=== PATIENT | male | born 1945 | race Caucasian/White ===

== ENCOUNTER 2020-11-23 11:38 | Inpatient (IN) | payer MEDICARE, OTHER ==
[~2020-11-23] VITALS: Ht 177.8 cm; Wt 82.1 kg
[2020-11-23] MEDS ORDERED: LIPITOR80 MG PO (18:08)
[2020-11-23] MEDS ORDERED: NEURONTIN600 MG PO (18:08)
[2020-11-23] MEDS ORDERED: CYMBALTA30 MG PO (18:08)
[2020-11-23] MEDS ORDERED: LEVOTHYROXINE50 MC1 PO (18:09)
[2020-11-23] MEDS ORDERED: JANUVIA 50 MG T50 MG PO (18:09)
[2020-11-23] MEDS ORDERED: TRULICITY1.5 MG/0.5 SQ (18:12)
[2020-11-23 18:55] LABS: HEMOGLOBIN 10.4 gm/dl (14.0-17.5); RED BLOOD COUNT 3.8 M/UL (4.20-5.50); WHITE BLOOD COUNT 21.3 K/UL (4.5-11.0)
[2020-11-24 03:23] LABS: HEMOGLOBIN 8.9 gm/dl (14.0-17.5); RED BLOOD COUNT 3.43 M/UL (4.20-5.50); WHITE BLOOD COUNT 18.6 K/UL (4.5-11.0)
[2020-11-24] MEDS ORDERED: TRESIBA FL100 UNIT/1 SQ (18:12)
[2020-11-25 06:40] LABS: HEMOGLOBIN 9.2 gm/dl (14.0-17.5); RED BLOOD COUNT 3.43 M/UL (4.20-5.50); WHITE BLOOD COUNT 27.4 K/UL (4.5-11.0)
[2020-11-26 08:16] LABS: RED BLOOD COUNT 3.29 M/UL (4.20-5.50); WHITE BLOOD COUNT 22.4 K/UL (4.5-11.0)
[2020-11-27 08:14] LABS: HEMOGLOBIN 8.6 gm/dl (14.0-17.5); RED BLOOD COUNT 3.17 M/UL (4.20-5.50)
[2020-11-27 08:15] LABS: WHITE BLOOD COUNT 28.3 K/UL (4.5-11.0)
[2020-11-29 05:36] LABS: HEMOGLOBIN 9.3 gm/dl (14.0-17.5); RED BLOOD COUNT 3.44 M/UL (4.20-5.50)
[2020-11-29 05:38] LABS: WHITE BLOOD COUNT 15.3 K/UL (4.5-11.0)
[2020-11-30 03:17] LABS: HEMOGLOBIN 9.7 gm/dl (14.0-17.5); RED BLOOD COUNT 3.63 M/UL (4.20-5.50)
--- NOTE | 2020-11-30 17:42 | NUR ---
CHANGED RIGHT FOOT DRESSING. COVERED WITH PRESCRIBED IODINE PASTE, NON ADHESIVES, 4X4'S , SPLINT AND DANELLE.
[2020-12-01 03:18] LABS: HEMOGLOBIN 8.6 gm/dl (14.0-17.5); WHITE BLOOD COUNT 17.9 K/UL (4.5-11.0)
[2020-12-01 03:22] LABS: RED BLOOD COUNT 3.15 M/UL (4.20-5.50)
[2020-12-02 04:42] LABS: HEMOGLOBIN 8.2 gm/dl (14.0-17.5); RED BLOOD COUNT 3.01 M/UL (4.20-5.50); WHITE BLOOD COUNT 13.9 K/UL (4.5-11.0)
[2020-12-03 02:51] LABS: HEMOGLOBIN 8.3 gm/dl (14.0-17.5); RED BLOOD COUNT 3.09 M/UL (4.20-5.50); WHITE BLOOD COUNT 12.9 K/UL (4.5-11.0)
[2020-12-04 03:06] LABS: HEMOGLOBIN 8.7 gm/dl (14.0-17.5); RED BLOOD COUNT 3.24 M/UL (4.20-5.50); WHITE BLOOD COUNT 12.5 K/UL (4.5-11.0)
[2020-12-05 03:50] LABS: HEMOGLOBIN 8.3 gm/dl (14.0-17.5); RED BLOOD COUNT 3.11 M/UL (4.20-5.50); WHITE BLOOD COUNT 14.3 K/UL (4.5-11.0)
[2020-12-06 03:59] LABS: HEMOGLOBIN 9.3 gm/dl (14.0-17.5); WHITE BLOOD COUNT 15.6 K/UL (4.5-11.0)
[2020-12-06 04:12] LABS: RED BLOOD COUNT 3.46 M/UL (4.20-5.50)
[2020-12-07 02:47] LABS: HEMOGLOBIN 8.4 gm/dl (14.0-17.5); RED BLOOD COUNT 3.15 M/UL (4.20-5.50); WHITE BLOOD COUNT 14.8 K/UL (4.5-11.0)
[2020-12-08 04:09] LABS: HEMOGLOBIN 7.9 gm/dl (14.0-17.5); RED BLOOD COUNT 2.97 M/UL (4.20-5.50); WHITE BLOOD COUNT 11.7 K/UL (4.5-11.0)
[2020-12-09 06:29] LABS: HEMOGLOBIN 7.8 gm/dl (14.0-17.5); RED BLOOD COUNT 2.95 M/UL (4.20-5.50); WHITE BLOOD COUNT 10.2 K/UL (4.5-11.0)
[2020-12-10 05:56] LABS: HEMOGLOBIN 8.5 gm/dl (14.0-17.5); RED BLOOD COUNT 3.18 M/UL (4.20-5.50); WHITE BLOOD COUNT 11.6 K/UL (4.5-11.0)
--- NOTE | 2020-12-10 15:10 | NUR ---
RECEIVED CALL FROM OR STAFF-ASHLI THAT PATIENT'S SURGERY WILL BE DONE TOMORROW TO PUT PATIENT NPO AFTER MIDNIGHT.
[2020-12-12 13:48] LABS: HEMOGLOBIN 7.6 gm/dl (14.0-17.5); WHITE BLOOD COUNT 10.8 K/UL (4.5-11.0)
[2020-12-12 13:59] LABS: RED BLOOD COUNT 2.8 M/UL (4.20-5.50)
[2020-12-14 02:58] LABS: HEMOGLOBIN 7.2 gm/dl (14.0-17.5); RED BLOOD COUNT 2.77 M/UL (4.20-5.50)
--- NOTE | 2020-12-14 18:49 | NUR ---
called dr. acevedo with no answer. left message
[2020-12-15 03:26] LABS: HEMOGLOBIN 8.6 gm/dl (14.0-17.5); RED BLOOD COUNT 3.02 M/UL (4.20-5.50); WHITE BLOOD COUNT 7.9 K/UL (4.5-11.0)
--- NOTE | 2020-12-16 04:23 | NUR ---
0415 WENT TO DO DRSG CHANGE AND FOUND THAT [facility] WAS OUT.
[2020-12-16 04:49] LABS: HEMOGLOBIN 9.2 gm/dl (14.0-17.5)
[2020-12-16 04:54] LABS: RED BLOOD COUNT 3.47 M/UL (4.20-5.50); WHITE BLOOD COUNT 10.5 K/UL (4.5-11.0)
[2020-12-17] MEDS ORDERED: HIGH POTENCY I134 MG PO (12:33)
[2020-12-17] MEDS ORDERED: VITAMIN B-1100 M1 PO (12:33)
[2020-12-17] MEDS ORDERED: FOLIC ACID 1 MG1 MG PO (12:33)
[2020-12-17] MEDS ORDERED: ASPIRIN EC81 MG PO (12:33)
[2020-12-17] MEDS ORDERED: DRONABINOL2.5 MG PO (12:33)
[2020-12-17] MEDS ORDERED: GABAPENTIN100 MG PO (12:33)
[2020-12-17] MEDS ORDERED: ACETAMINOPHEN325 MG PO (12:33)
[2020-12-17] MEDS ORDERED: AMLODIPINE BESYL5 MG PO (12:33)
[2020-12-17] MEDS ORDERED: TRESIBA FL100 UNIT/1 SQ (12:33)
[2020-12-18] MEDS ORDERED: LOPRESSOR 25 MG25 MG PO (11:05)
[2020-12-18 11:12] LABS: HEMOGLOBIN 8.8 gm/dl (14.0-17.5); RED BLOOD COUNT 3.29 M/UL (4.20-5.50); WHITE BLOOD COUNT 11.3 K/UL (4.5-11.0)
== END 2020-12-18 16:20 | DRG 853 ==
LOC: MED SURG 4 17:22 → M/S 17:22
PROVIDERS: Internal Medicine; Physician Assistant; Surgery; ADMIT Internal Medicine
PROC: 0QBN0ZZ Excision of Right Metatarsal, Open Approach (ICD-10-PCS; 2020-11-25)
PROC: 0HXMXZZ Transfer Right Foot Skin, External Approach (ICD-10-PCS; 2020-11-25)
PROC: 0JBQ0ZZ Excision of Right Foot Subcutaneous Tissue and Fascia, Open Approach (ICD-10-PCS; 2020-11-25)
PROC: 3E10X8Z Irrigation of Skin and Mucous Membranes using Irrigating Substance (ICD-10-PCS; 2020-12-04)
PROC: 047P3ZZ Dilation of Right Anterior Tibial Artery, Percutaneous Approach (ICD-10-PCS; 2020-12-08)
PROC: 047R3ZZ Dilation of Right Posterior Tibial Artery, Percutaneous Approach (ICD-10-PCS; 2020-12-08)
PROC: 0Y6R0Z0 Detachment at Right 2nd Toe, Complete, Open Approach (ICD-10-PCS; principal; 2020-12-12)
DX: A41.9 Sepsis, unspecified organism (principal); G93.41 Metabolic encephalopathy; E43 Unspecified severe protein-calorie malnutrition; M86.8X7 Other osteomyelitis, ankle and foot; I70.261 Atherosclerosis of native arteries of extremities with gangrene, right leg; L97.419 Non-pressure chronic ulcer of right heel and midfoot with unspecified severity; E87.1 Hypo-osmolality and hyponatremia; L03.115 Cellulitis of right lower limb; N17.9 Acute kidney failure, unspecified; E87.2 Acidosis; I47.2 Ventricular tachycardia; E11.621 Type 2 diabetes mellitus with foot ulcer; I10 Essential (primary) hypertension; N18.30 Chronic kidney disease, stage 3 unspecified; I12.9 Hypertensive chronic kidney disease with stage 1 through stage 4 chronic kidney disease, or unspecified chronic kidney disease; I25.10 Atherosclerotic heart disease of native coronary artery without angina pectoris; E03.9 Hypothyroidism, unspecified; E78.5 Hyperlipidemia, unspecified; D53.9 Nutritional anemia, unspecified; E87.8 Other disorders of electrolyte and fluid balance, not elsewhere classified; D50.9 Iron deficiency anemia, unspecified; Z20.822 Contact with and (suspected) exposure to COVID-19; Z95.1 Presence of aortocoronary bypass graft; Z79.4 Long term (current) use of insulin; Z68.25 Body mass index [BMI] 25.0-25.9, adult
CPT/HCPCS: 36415; 36430; 36600; 70450; 70551; 71045; 71046; 73721; 75630; 80048; 80053; 80202; 82140; 82803; 82962; 83540; 83550; 83605; 83735; 85007; 85025; 85027; 85045; 85652; 86140; 86850; 86900; 86901; 86920; 87040; 87070; 87077; 87186; 87205; 87635; 92507; 92526; 92610; 93005; 93926; 94760; 97110-GP-CQ; 97162; 97167; 97530-GP-CQ; C1725; C1769; C1887; J0360; J0692; J0885; J1100; J1335; J1644; J1650; J1756; J2001; J2270; J2405; J2704; J2710; J2720; J2795; J3010; J3370; J3486; J7030; J7040; J7050; J7070; J7120; P9016; Q4133; Q5106; Q9962; U0002

== ENCOUNTER 2020-12-29 14:23 | Inpatient (IN) | payer MEDICARE, OTHER ==
[~2020-12-29] VITALS: Ht 177.8 cm; Wt 70.3 kg
[~2020-12-29 14:23] MED LIST: ACETAMINOPHEN325 MG PO; AMLODIPINE BESYL5 MG PO; ASPIRIN EC81 MG PO; CYMBALTA30 MG PO; DRONABINOL2.5 MG PO; FOLIC ACID 1 MG1 MG PO; GABAPENTIN100 MG PO; HIGH POTENCY I134 MG PO; JANUVIA 50 MG T50 MG PO; LEVOTHYROXINE50 MC1 PO; LIPITOR80 MG PO; LOPRESSOR 25 MG25 MG PO; NEURONTIN600 MG PO; TRESIBA FL100 UNIT/1 SQ; TRULICITY1.5 MG/0.5 SQ; VITAMIN B-1100 M1 PO
[2020-12-29 18:44] LABS: RED BLOOD COUNT 3.35 M/UL (4.20-5.50); WHITE BLOOD COUNT 9.8 K/UL (4.5-11.0)
[2020-12-30 06:27] LABS: HEMOGLOBIN 8.4 gm/dl (14.0-17.5); RED BLOOD COUNT 3.1 M/UL (4.20-5.50); WHITE BLOOD COUNT 11.4 K/UL (4.5-11.0)
[2020-12-31 06:33] LABS: HEMOGLOBIN 8.3 gm/dl (14.0-17.5); RED BLOOD COUNT 3.24 M/UL (4.20-5.50); WHITE BLOOD COUNT 10.5 K/UL (4.5-11.0)
--- NOTE | 2020-12-31 09:30 | NUR ---
CONTACTED AT THIS TIME TO DETERMINE WHETHER PATIENT STILL NEEDS TO BE NPO OR IF PATIENT IS ABLE TO EAT. LEFT A MESSAGE WITH A CALL BACK NUMBER.
[2021-01-01 05:32] LABS: HEMOGLOBIN 8.7 gm/dl (14.0-17.5); RED BLOOD COUNT 3.25 M/UL (4.20-5.50); WHITE BLOOD COUNT 10.4 K/UL (4.5-11.0)
[2021-01-02 05:36] LABS: HEMOGLOBIN 7.1 gm/dl (14.0-17.5); RED BLOOD COUNT 2.72 M/UL (4.20-5.50); WHITE BLOOD COUNT 13.6 K/UL (4.5-11.0)
[2021-01-02 16:13] LABS: HEMOGLOBIN 7.1 gm/dl (14.0-17.5)
[2021-01-03 03:43] LABS: HEMOGLOBIN 7.3 gm/dl (14.0-17.5); RED BLOOD COUNT 2.7 M/UL (4.20-5.50); WHITE BLOOD COUNT 11.5 K/UL (4.5-11.0)
[2021-01-04 04:30] LABS: HEMOGLOBIN 7.9 gm/dl (14.0-17.5); RED BLOOD COUNT 2.95 M/UL (4.20-5.50); WHITE BLOOD COUNT 10.3 K/UL (4.5-11.0)
[2021-01-05 04:37] LABS: HEMOGLOBIN 7.8 gm/dl (14.0-17.5); RED BLOOD COUNT 2.91 M/UL (4.20-5.50); WHITE BLOOD COUNT 10.6 K/UL (4.5-11.0)
--- NOTE | 2021-01-05 16:47 | NUR ---
PATIENT IS ALERT AND ACTIVE TODAY. PATIENT CAN BE TALKATIVE AT TIMES. HE IS COOPERATIVE, BUT DOES FORGET HIS LIMITATIONS AND TRYS TO GET UP WITHOUT ASSISTANCE. HE IS DISORIENTED TO TIME AND PLACE. WILL CONTIUE TO MONITOR.
--- NOTE | 2021-01-06 02:03 | NUR ---
REPORTED TO IMMEDIATE DELIVERY ROOM SUPERVISOR THAT PATIENT WAS ACCUSING STAFF OF RAPING HIM DURING ~2229 WHEN PATIENT WAS TRYING TO GET OOB, PULLING AT IV. HE ALSO WA TALKING/ASKING STAFF ABOUT BOMBS, AND HE WAS SEEING WATER IN HIS ROOM. MYSELF, SUKHWINDER HAHN, CHELSY HAHN , AND CASSIDY MCCLURE WERE IN HIS ROOM. I HAD TO CALL SECURITY DURING THIS TIME WELL DUE TO HIS AGITATION WITH SAT[employer].
[2021-01-07 06:48] LABS: HEMOGLOBIN 8.6 gm/dl (14.0-17.5); RED BLOOD COUNT 3.19 M/UL (4.20-5.50)
[2021-01-07] MEDS ORDERED: AMLODIPINE BESYL5 MG PO (11:33)
== END 2021-01-07 16:46 | DRG 239 ==
LOC: MED SURG 4 14:23
PROVIDERS: Internal Medicine; Physician Assistant; Podiatrist Foot & Ankle Surgery; ADMIT Internal Medicine
PROC: 0Y6M0ZB Detachment at Right Foot, Partial 2nd Ray, Open Approach (ICD-10-PCS; 2021-01-01)
PROC: 0Y6M0ZC Detachment at Right Foot, Partial 3rd Ray, Open Approach (ICD-10-PCS; 2021-01-01)
PROC: 0Y6M0ZD Detachment at Right Foot, Partial 4th Ray, Open Approach (ICD-10-PCS; 2021-01-01)
PROC: 0Y6M0ZF Detachment at Right Foot, Partial 5th Ray, Open Approach (ICD-10-PCS; 2021-01-01)
PROC: 0Y6M0Z9 Detachment at Right Foot, Partial 1st Ray, Open Approach (ICD-10-PCS; principal; 2021-01-01 12:00)
DX: E11.52 Type 2 diabetes mellitus with diabetic peripheral angiopathy with gangrene (principal); G93.41 Metabolic encephalopathy; M86.8X7 Other osteomyelitis, ankle and foot; I96 Gangrene, not elsewhere classified; D62 Acute posthemorrhagic anemia; N17.9 Acute kidney failure, unspecified; E11.621 Type 2 diabetes mellitus with foot ulcer; E11.69 Type 2 diabetes mellitus with other specified complication; I12.9 Hypertensive chronic kidney disease with stage 1 through stage 4 chronic kidney disease, or unspecified chronic kidney disease; E11.22 Type 2 diabetes mellitus with diabetic chronic kidney disease; E03.9 Hypothyroidism, unspecified; N18.30 Chronic kidney disease, stage 3 unspecified; I25.10 Atherosclerotic heart disease of native coronary artery without angina pectoris; Z91.19 Patient's noncompliance with other medical treatment and regimen
CPT/HCPCS: 36415; 70450; 73721; 80048; 80053; 80202; 82140; 82962; 83036; 83735; 85014; 85018; 85025; 85652; 86140; 87070; 87077; 87186; 87205; 93926; 97110-GP-CQ; 97162; 97530-GP-CQ; C1751; J0690; J0692; J1335; J1644; J2250; J2270; J2370; J2405; J2704; J2795; J3010; J3370; J7030; J7070; J7120; U0002